=== PATIENT | male | born 1970 | race Two or more races ===

== ENCOUNTER 2021-02-23 01:14 | Emergency (ER) | payer OTHER ==
[~2021-02-23] VITALS: Ht 167.6 cm; Wt 155.0 kg
--- NOTE | 2021-02-23 01:32 | NUR ---
nishaa from home for syncopal event/GLF. pt states syncopal episodes frequently in last month. pt states he hit his forehead, no obvious trauma noted, denies midline cervical tenderness. all monitors attached, nsr, nadn. marni Hagen at bedside for eval.
[2021-02-23 01:59] LABS: BASOPHILS % (AUTO) 1 % (0-1); EOSINOPHILS % (AUTO) 2 % (1-7); LYMPHOCYTES % (AUTO) 15 % (22-44); MEAN CORPUSCULAR HEMOGLOBIN 33.6 pg (27.5-34.5); MEAN CORPUSCULAR HGB CONC 33.4 g/dL (33.2-36.2); MEAN PLATELET VOLUME 6.3 fL (7.4-10.4); MONOCYTES % (AUTO) 8 % (2-9); NEUTROPHILS % (AUTO) 73 % (42-75); PLATELET COUNT 227 x10^3/uL (130-400); RED BLOOD COUNT 4.52 x10^6/uL (4.38-5.82)
[2021-02-23 02:10] LABS: ANION GAP 6 mmol/L (5-15); CALCIUM 8.5 mg/dL (8.5-10.1); CHLORIDE 108 mmol/L (98-107); CREATININE 1.07 mg/dL (0.7-1.3)
[2021-02-23 02:14] LABS: TROPONIN I < 0.015 ng/mL (0.000-0.045)
[2021-02-23 04:00] VITALS: BP 110/76
== END 2021-02-23 04:48 | disposition home or self-care (01) ==
LOC: ED 04:00
DX: S06.0X1A Concussion with loss of consciousness of 30 minutes or less, initial encounter (principal); W18.00XA Striking against unspecified object with subsequent fall, initial encounter; Y93.89 Activity, other specified; Y92.090 Kitchen in other non-institutional residence as the place of occurrence of the external cause; Y99.8 Other external cause status
CPT/HCPCS: 36415; 70450; 80048; 82040; 84484; 85025; 93005; 99284